=== PATIENT | male | born 1960 | race Caucasian/White ===

== ENCOUNTER 2022-04-01 01:33 | Inpatient (IN) | payer MEDICAID ==
[~2022-04-01] VITALS: Ht 180.3 cm; Wt 99.8 kg
[2022-04-01] MEDS ORDERED: IPRATROPIUM BROMIDE (0.02%) 0.5MG/2.5ML NEB HHN STA (01:38)
[2022-04-01] MEDS ORDERED: ALBUTEROL (0.083%) 2.5MG/3ML NEB HHN STA (01:38)
[2022-04-01 02:15] LABS: BASOPHILS % 0.2 % (0.0-2.0); HEMATOCRIT. 22.2 % (42.0-52.0); HEMOGLOBIN. 7.3 g/dL (14.0-18.0); LYMPHOCYTES % 7.2 % (20.0-50.0); MEAN CORPUSCULAR HEMOGLOBIN 30.1 pg (28.0-32.0); MEAN CORPUSCULAR VOLUME 91.6 fL (80.0-94.0); MEAN PLATELET VOLUME 9.1 fl (7.4-10.4); MONOCYTES % 8.8 % (2.0-8.0); NEUTROPHILS % 83.8 % (40.0-76.0); PLATELET 321 x1000/uL (130-400); RED BLOOD CELL COUNT 2.42 mill/uL (4.7-6.1); RED CELL DISTRIBUTION WIDTH 14.8 % (11.6-14.6)
[2022-04-01 02:22] LABS: CHLORIDE 110 mEq/L (98-107); PARTIAL THROMBOPLASTIN TIME 35.1 sec (23.4-31.0); PROTHROMBIN TIME 10.9 sec (9.6-11.0)
[2022-04-01 02:31] LABS: ETHANOL BLOOD < 10 mg/dL
[2022-04-01] MEDS ORDERED: FUROSEMIDE 100MG/10ML VIAL IV NR (03:22)
[2022-04-01] MEDS ORDERED: SODIUM POLYSTYRENE SULFONATE 15 G/60 ML BOT PO NR ×2 (03:30→13:15)
[2022-04-01] MEDS ORDERED: DEXTROSE 50% WATER 50ML SYRINGE IV NR (03:30)
[2022-04-01] MEDS ORDERED: CALCIUM GLUCONATE 100MG/ML 10ML VIAL IV NR (03:30)
[2022-04-01] MEDS ORDERED: INSULIN REGULAR (HUMULIN R) 300UNITS/3ML VIAL IV NR (03:30)
[2022-04-01 06:17] LABS: CLARITY URINE CLOUDY (CLEAR); COLOR URINE DARK YELLOW (YELLOW); KETONES URINE TRACE (NEGATIVE); LEUKOCYTE ESTERASE URINE NEGATIVE (NEGATIVE); NITRITE URINE NEGATIVE (NEGATIVE); OCCULT BLOOD URINE NEGATIVE (NEGATIVE); PROTEIN URINE 3+ (NEGATIVE); SPECIFIC GRAVITY URINE 1.018 (1.005-1.030); UROBILINOGEN URINE 0.2 E.U./dL (0.2-1.0)
[2022-04-01] MEDS ORDERED: DEXTROSE 50% WATER 50ML SYRINGE IV ONE (06:45)
[2022-04-01 06:47] LABS: *AMPHETAMINES SCREEN URINE NEGATIVE (NEGATIVE); *BARBITURATES SCREEN URINE NEGATIVE (NEGATIVE); *BENZODIAZEPINES SCREEN URINE NEGATIVE (NEGATIVE); *COCAINE SCREEN URINE NEGATIVE (NEGATIVE); CANNABINOID URINE SCREEN NEGATIVE (NEGATIVE); METHADONE URINE SCREEN NEGATIVE (NEGATIVE); OPIATES URINE SCREEN NEGATIVE (NEGATIVE); PHENCYCLIDINE URINE SCREEN NEGATIVE (NEGATIVE)
[2022-04-01 09:36] LABS: BG BASE EXCESS -8.2 mmol/L (-2.0-2.0); BG DEOXYHEMOGLOBIN 7.3 % (0.0-5.0); BG FRACTION INSPIRED OXYGEN 100; BG HCO3 ACT 17.1 mmol/L (22.0-26.0); BG METHEMOGLOBIN 0.3 % (0.0-1.5); BG OXYGEN SATURATION 92.7 % (92.0-98.5); BG OXYHEMOGLOBIN 92.4 % (94.0-97.0); BG PCO2 33.9 mmHg (35.0-45.0); BG PH 7.321 (7.350-7.450); BG PO2 69.6 mmHg (75.0-100.0); BG SAMPLE SITE LEFT RADIAL; BG TOTAL HEMOGLOBIN 7.8 g/dL (12.0-18.0); BG VENT MODE MASK - NRB
[2022-04-01] MEDS ORDERED: HYDROCODONE/ACETAMINOPHEN 5/325MG TABLET PO PRN (12:00)
[2022-04-01] MEDS ORDERED: ACETAMINOPHEN 325MG TABLET PO PRN (12:15)
[2022-04-01] MEDS ORDERED: ONDANSETRON HCL 4MG/2ML INJ IV PRN (12:15)
[2022-04-01] MEDS ORDERED: CEFTRIAXONE 1 G PREMIX 50 ML IV SCH (12:30)
[2022-04-01] MEDS ORDERED: DEXAMETHASONE 4MG/ML 1ML VIAL IV SCH (12:30)
[2022-04-01] MEDS ORDERED: NALOXONE HCL 0.4MG/ML VIAL IV PRN (12:45)
[2022-04-01] MEDS: DEXAMETHASONE 10 MG/ML VIAL IV SCH (12:54)
[2022-04-01] MEDS ORDERED: VANCOMYCIN 1500MG in DEXTROSE 5% WATER 250ML IV NR (13:00)
[2022-04-01] MEDS ORDERED: SODIUM BICARBONATE 8.4% 1 MEQ/ML 50ML SYR IV NR (13:15)
[2022-04-01] MEDS ORDERED: ALBUTEROL 6.7GM HFA INHALER ORI NR (19:30)
[2022-04-01] MEDS ORDERED: FUROSEMIDE 100MG/10ML VIAL IVP SCH (21:00)
[2022-04-01] MEDS ORDERED: EPOETIN ALFA-EPBX 4,000 UNIT/ML VIAL SUBCUT NR (21:00)
[2022-04-01 23:23] VITALS: BP 149/76
[2022-04-02 04:00] VITALS: BP 133/66
[2022-04-02] MEDS ORDERED: LOSA25TA26 PO (06:38)
[2022-04-02] MEDS ORDERED: LISI20TA31 PO (06:38)
[2022-04-02] MEDS ORDERED: GABA-532 PO (06:38)
[2022-04-02] MEDS ORDERED: CARV25TA47 PO (06:38)
[2022-04-02] MEDS ORDERED: FURO40TA5 PO (06:38)
[2022-04-02] MEDS ORDERED: GLIP5TAB12 PO (06:39)
[2022-04-02] MEDS ORDERED: DEXTROSE 50% WATER 50ML SYRINGE IV PRN (06:45)
[2022-04-02 06:57] LABS: BASOPHILS % 0.1 % (0.0-2.0); LYMPHOCYTES % 8.9 % (20.0-50.0); MEAN CORPUSCULAR HEMOGLOBIN 29.9 pg (28.0-32.0); MEAN CORPUSCULAR VOLUME 91.5 fL (80.0-94.0); MONOCYTES % 8.3 % (2.0-8.0); NEUTROPHILS % 82.7 % (40.0-76.0); PLATELET 391 x1000/uL (130-400); RED BLOOD CELL COUNT 2.99 mill/uL (4.7-6.1); RED CELL DISTRIBUTION WIDTH 14.8 % (11.6-14.6)
[2022-04-02 07:18] LABS: HEMATOCRIT. 27.4 % (42.0-52.0); HEMOGLOBIN. 8.9 g/dL (14.0-18.0)
[2022-04-02] MEDS: INSULIN LISPRO 100 UNITS/ML SUBCUT SCH ×4 (07:32→22:34)
[2022-04-02 07:51] LABS: CHLORIDE 107 mEq/L (98-107)
[2022-04-02 07:52] LABS: BG BASE EXCESS -9.7 mmol/L (-2.0-2.0); BG CARBOXYHEMOGLOBIN 0.3 % (0.5-1.5); BG DEOXYHEMOGLOBIN 9.2 % (0.0-5.0); BG HCO3 ACT 15.7 mmol/L (22.0-26.0); BG METHEMOGLOBIN 0.3 % (0.0-1.5); BG OXYGEN SATURATION 90.7 % (92.0-98.5); BG OXYHEMOGLOBIN 90.2 % (94.0-97.0); BG PCO2 32.4 mmHg (35.0-45.0); BG PH 7.303 (7.350-7.450); BG PO2 66.1 mmHg (75.0-100.0); BG SAMPLE SITE RIGHT BRACHIAL; BG TOTAL HEMOGLOBIN 8.6 g/dL (12.0-18.0); BG VENT MODE NASAL CANNULA
[2022-04-02 08:00] VITALS: BP 151/76
[2022-04-02 08:09] LABS: CREATINE KINASE 1299 IU/L (39-308); PHOSPHORUS 7.5 mg/dL (2.5-4.9)
[2022-04-02] MEDS: GABAPENTIN 300MG CAPSULE PO SCH (08:30)
[2022-04-02] MEDS: CEFTRIAXONE 1,000 MG in DEXTROSE 5% WATER 50 ML IV SCH (08:31)
[2022-04-02] MEDS: DEXAMETHASONE 10 MG/ML VIAL IV SCH (08:31)
[2022-04-02] MEDS: CARVEDILOL 12.5MG TABLET PO SCH ×2 (08:31→23:16)
[2022-04-02] MEDS ORDERED: FUROSEMIDE 40MG/4ML VIAL IVP SCH (09:00)
[2022-04-02] MEDS ORDERED: SODIUM POLYSTYRENE SULFONATE 15 G/60 ML BOT PO NR ×2 (09:00→16:00)
[2022-04-02] MEDS ORDERED: LOSARTAN POTASSIUM 25 MG TABLET PO SCH (09:00)
[2022-04-02] MEDS ORDERED: LISINOPRIL 20MG TABLET PO SCH (09:00)
[2022-04-02] MEDS ORDERED: FUROSEMIDE 40MG/4ML VIAL IVP NR (09:00)
[2022-04-02] MEDS: CITRIC ACID/SODIUM CITRATE SOLN 30ML UDC PO SCH ×3 (09:22→17:09)
[2022-04-02] MEDS ORDERED: INSULIN GLARGINE 100 UNITS/ML SUBCUT NR (10:30)
[2022-04-02] MEDS: BLOOD SUGAR DIAGNOSTIC STRIP TEST SCH ×3 (11:36→20:54)
[2022-04-02 12:00] VITALS: BP 140/67
[2022-04-02] MEDS ORDERED: VANCOMYCIN 500MG PREMIX 100 ML IV NR (15:00)
[2022-04-02 16:00] VITALS: BP 116/74
[2022-04-02 20:00] VITALS: BP 125/81
[2022-04-02] MEDS: INSULIN GLARGINE 100 UNITS/ML SUBCUT SCH (22:33)
[2022-04-02] MEDS: FUROSEMIDE 100MG/10ML VIAL IVP SCH (22:34)
[2022-04-03] VITALS: BP 144/78
[2022-04-03 04:00] VITALS: BP 137/74
[2022-04-03] MEDS: INSULIN LISPRO 100 UNITS/ML SUBCUT SCH ×4 (06:29→21:27)
[2022-04-03] MEDS: BLOOD SUGAR DIAGNOSTIC STRIP TEST SCH ×4 (06:29→21:02)
[2022-04-03 08:00] VITALS: BP 129/63
[2022-04-03] MEDS: CITRIC ACID/SODIUM CITRATE SOLN 30ML UDC PO SCH ×3 (09:34→17:36)
[2022-04-03] MEDS: CARVEDILOL 12.5MG TABLET PO SCH ×2 (09:35→21:27)
[2022-04-03] MEDS: DEXAMETHASONE 10 MG/ML VIAL IV SCH (09:35)
[2022-04-03] MEDS: FUROSEMIDE 100MG/10ML VIAL IVP SCH ×2 (09:35→21:26)
[2022-04-03] MEDS: CEFTRIAXONE 1,000 MG in DEXTROSE 5% WATER 50 ML IV SCH (09:35)
[2022-04-03] MEDS: GABAPENTIN 300MG CAPSULE PO SCH (09:35)
[2022-04-03] MEDS: INSULIN GLARGINE 100 UNITS/ML SUBCUT SCH ×2 (09:54→21:28)
[2022-04-03 12:00] VITALS: BP 136/67
[2022-04-03 14:09] LABS: HEMATOCRIT. 26.3 % (42.0-52.0); HEMOGLOBIN. 8.8 g/dL (14.0-18.0); MEAN CORPUSCULAR HEMOGLOBIN 29.3 pg (28.0-32.0); MEAN CORPUSCULAR VOLUME 87.9 fL (80.0-94.0); MEAN PLATELET VOLUME 8.2 fl (7.4-10.4); PLATELET 445 x1000/uL (130-400); RED CELL DISTRIBUTION WIDTH 14.3 % (11.6-14.6)
[2022-04-03 14:47] LABS: PLATELET ESTIMATE INCREASED
[2022-04-03 14:53] LABS: CHLORIDE 107 mEq/L (98-107)
[2022-04-03 16:00] VITALS: BP 130/67
[2022-04-03] MEDS ORDERED: ALBUTEROL 6.7GM HFA INHALER ORI PRN (17:00)
[2022-04-03] MEDS ORDERED: VANCOMYCIN 750MG PREMIX 150 ML IV NR (17:30)
[2022-04-03 18:25] LABS: BG BASE EXCESS -0.9 mmol/L (-2.0-2.0); BG CARBOXYHEMOGLOBIN 0.1 % (0.5-1.5); BG DEOXYHEMOGLOBIN 16.1 % (0.0-5.0); BG FRACTION INSPIRED OXYGEN 21; BG HCO3 ACT 23.2 mmol/L (22.0-26.0); BG METHEMOGLOBIN 0.3 % (0.0-1.5); BG OXYGEN SATURATION 83.8 % (92.0-98.5); BG OXYHEMOGLOBIN 83.5 % (94.0-97.0); BG PCO2 36.3 mmHg (35.0-45.0); BG PH 7.424 (7.350-7.450); BG PO2 49.1 mmHg (75.0-100.0); BG SAMPLE SITE RIGHT BRACHIAL; BG TOTAL HEMOGLOBIN 9.7 g/dL (12.0-18.0); BG VENT MODE ROOM AIR
[2022-04-03 20:00] VITALS: BP 144/71
[2022-04-04] VITALS: BP 141/65
[2022-04-04 04:00] VITALS: BP 141/65
[2022-04-04] MEDS: INSULIN LISPRO 100 UNITS/ML SUBCUT SCH ×4 (07:10→21:24)
[2022-04-04] MEDS: BLOOD SUGAR DIAGNOSTIC STRIP TEST SCH ×4 (07:39→21:24)
[2022-04-04 08:00] VITALS: BP 150/70
[2022-04-04] MEDS: CEFTRIAXONE 1,000 MG in DEXTROSE 5% WATER 50 ML IV SCH (09:12)
[2022-04-04] MEDS: CARVEDILOL 12.5MG TABLET PO SCH ×2 (09:13→21:21)
[2022-04-04] MEDS: DEXAMETHASONE 10 MG/ML VIAL IV SCH (09:14)
[2022-04-04] MEDS: GABAPENTIN 300MG CAPSULE PO SCH (09:14)
[2022-04-04] MEDS: FUROSEMIDE 100MG/10ML VIAL IVP SCH ×2 (09:15→21:20)
[2022-04-04] MEDS: CITRIC ACID/SODIUM CITRATE SOLN 30ML UDC PO SCH ×3 (09:15→17:25)
[2022-04-04 09:26] LABS: HEMATOCRIT. 26.8 % (42.0-52.0); MEAN CORPUSCULAR HEMOGLOBIN 29.8 pg (28.0-32.0); MEAN CORPUSCULAR VOLUME 88.6 fL (80.0-94.0); MEAN PLATELET VOLUME 8.6 fl (7.4-10.4); PLATELET 427 x1000/uL (130-400); RED BLOOD CELL COUNT 3.03 mill/uL (4.7-6.1); RED CELL DISTRIBUTION WIDTH 14.3 % (11.6-14.6)
[2022-04-04 09:33] LABS: PHOSPHORUS 5.5 mg/dL (2.5-4.9)
[2022-04-04] MEDS: INSULIN GLARGINE 100 UNITS/ML SUBCUT SCH ×2 (09:49→21:23)
[2022-04-04 12:00] VITALS: BP 155/72
[2022-04-04] MEDS ORDERED: VANCOMYCIN 1G PREMIX 200 ML IV NR (12:00)
[2022-04-04 13:54] LABS: PLATELET ESTIMATE INCREASED
[2022-04-04 16:00] VITALS: BP_SYST 157; BP_SYST 97; BP_DIAS 58; BP_DIAS 74
[2022-04-04 20:00] VITALS: BP 156/71
[2022-04-05] VITALS: BP 149/96
[2022-04-05 04:00] VITALS: BP 167/83
[2022-04-05 05:27] VITALS: BP 155/74
[2022-04-05] MEDS: BLOOD SUGAR DIAGNOSTIC STRIP TEST SCH ×4 (06:05→21:13)
[2022-04-05] MEDS: INSULIN LISPRO 100 UNITS/ML SUBCUT SCH ×4 (06:05→21:15)
[2022-04-05 08:00] LABS: BG BASE EXCESS 0.3 mmol/L (-2.0-2.0); BG CARBOXYHEMOGLOBIN 0.3 % (0.5-1.5); BG DEOXYHEMOGLOBIN 5.6 % (0.0-5.0); BG HCO3 ACT 24.2 mmol/L (22.0-26.0); BG OXYGEN SATURATION 94.4 % (92.0-98.5); BG OXYHEMOGLOBIN 94.1 % (94.0-97.0); BG PCO2 36.1 mmHg (35.0-45.0); BG PH 7.445 (7.350-7.450); BG PO2 74.6 mmHg (75.0-100.0); BG SAMPLE SITE RIGHT RADIAL; BG TOTAL HEMOGLOBIN 9.4 g/dL (12.0-18.0); BG VENT MODE MASK - SIMPLE
[2022-04-05] MEDS: CITRIC ACID/SODIUM CITRATE SOLN 30ML UDC PO SCH ×3 (09:50→17:47)
[2022-04-05] MEDS: FUROSEMIDE 100MG/10ML VIAL IVP SCH (09:50)
[2022-04-05] MEDS: DEXAMETHASONE 10 MG/ML VIAL IV SCH (09:51)
[2022-04-05] MEDS: CARVEDILOL 12.5MG TABLET PO SCH ×2 (09:51→21:14)
[2022-04-05] MEDS: GABAPENTIN 300MG CAPSULE PO SCH (09:51)
[2022-04-05] MEDS: CEFTRIAXONE 1,000 MG in DEXTROSE 5% WATER 50 ML IV SCH (10:00)
[2022-04-05] MEDS: INSULIN GLARGINE 100 UNITS/ML SUBCUT SCH ×2 (10:07→21:17)
[2022-04-05] MEDS: AMLODIPINE 10MG TABLET PO SCH (10:34)
[2022-04-05 11:45] LABS: HEMATOCRIT. 28.7 % (42.0-52.0); HEMOGLOBIN. 9.4 g/dL (14.0-18.0); MEAN CORPUSCULAR HEMOGLOBIN 28.9 pg (28.0-32.0); MEAN CORPUSCULAR VOLUME 87.8 fL (80.0-94.0); MEAN PLATELET VOLUME 8.2 fl (7.4-10.4); PLATELET 460 x1000/uL (130-400); RED BLOOD CELL COUNT 3.27 mill/uL (4.7-6.1); RED CELL DISTRIBUTION WIDTH 14.6 % (11.6-14.6)
[2022-04-05 12:00] VITALS: BP 146/73
[2022-04-05 12:14] LABS: PHOSPHORUS 4.2 mg/dL (2.5-4.9)
[2022-04-05 13:05] LABS: PLATELET ESTIMATE SLIGHTLY INCREASED
[2022-04-05 16:00] VITALS: BP 122/55
[2022-04-05 20:00] VITALS: BP 137/69
[2022-04-06] VITALS: BP 122/52
[2022-04-06 04:00] VITALS: BP 141/69
[2022-04-06] MEDS: BLOOD SUGAR DIAGNOSTIC STRIP TEST SCH ×4 (06:07→20:52)
[2022-04-06] MEDS: INSULIN LISPRO 100 UNITS/ML SUBCUT SCH ×4 (06:14→21:27)
[2022-04-06 06:51] LABS: HEMATOCRIT. 26.9 % (42.0-52.0); HEMOGLOBIN. 8.8 g/dL (14.0-18.0); MEAN CORPUSCULAR HEMOGLOBIN 28.7 pg (28.0-32.0); MEAN CORPUSCULAR VOLUME 87.5 fL (80.0-94.0); MEAN PLATELET VOLUME 8.3 fl (7.4-10.4); PLATELET 448 x1000/uL (130-400); RED BLOOD CELL COUNT 3.08 mill/uL (4.7-6.1); RED CELL DISTRIBUTION WIDTH 14.6 % (11.6-14.6)
[2022-04-06 07:08] LABS: PHOSPHORUS 4.7 mg/dL (2.5-4.9)
[2022-04-06] MEDS: AMLODIPINE 10MG TABLET PO SCH (10:11)
[2022-04-06] MEDS: CEFTRIAXONE 1,000 MG in DEXTROSE 5% WATER 50 ML IV SCH (10:11)
[2022-04-06] MEDS: GABAPENTIN 300MG CAPSULE PO SCH (10:12)
[2022-04-06] MEDS: FUROSEMIDE 100MG/10ML VIAL IVP SCH (10:12)
[2022-04-06] MEDS: CITRIC ACID/SODIUM CITRATE SOLN 30ML UDC PO SCH ×3 (10:12→17:31)
[2022-04-06] MEDS: DEXAMETHASONE 10 MG/ML VIAL IV SCH (10:12)
[2022-04-06] MEDS: CARVEDILOL 12.5MG TABLET PO SCH ×2 (10:15→21:25)
[2022-04-06] MEDS: INSULIN GLARGINE 100 UNITS/ML SUBCUT SCH ×2 (10:29→21:26)
[2022-04-06] MEDS ORDERED: GUAIFENESIN/CODEINE 100-10MG/5ML UDC PO PRN (14:45)
[2022-04-06] MEDS ORDERED: GUAIFENESIN/CODEINE 200-20MG/10ML UDC PO PRN (14:59)
[2022-04-06 16:13] VITALS: BP 139/67
[2022-04-06 17:54] LABS: PLATELET ESTIMATE INCREASED
[2022-04-06] MEDS: ALBUTEROL 6.7GM HFA INHALER ORI SCH (18:34)
[2022-04-06 20:00] VITALS: BP 140/65
[2022-04-06] MEDS: TRAZODONE HCL 50MG TABLET PO PRN (21:24)
[2022-04-07] VITALS: BP 155/59
[2022-04-07] MEDS: ALBUTEROL 6.7GM HFA INHALER ORI SCH ×4 (00:18→17:23)
[2022-04-07 03:35] LABS: BG CARBOXYHEMOGLOBIN 0.3 % (0.5-1.5); BG DEOXYHEMOGLOBIN 7.7 % (0.0-5.0); BG FRACTION INSPIRED OXYGEN 100; BG HCO3 ACT 28.5 mmol/L (22.0-26.0); BG METHEMOGLOBIN 0.1 % (0.0-1.5); BG OXYGEN SATURATION 92.3 % (92.0-98.5); BG OXYHEMOGLOBIN 91.9 % (94.0-97.0); BG PCO2 42.6 mmHg (35.0-45.0); BG PH 7.443 (7.350-7.450); BG PO2 67.5 mmHg (75.0-100.0); BG SAMPLE SITE RIGHT BRACHIAL; BG TOTAL HEMOGLOBIN 9.9 g/dL (12.0-18.0); BG VENT MODE MASK - NRB
[2022-04-07 04:00] VITALS: BP_SYST 121; BP_SYST 144; BP_DIAS 68; BP_DIAS 79
[2022-04-07] MEDS: BLOOD SUGAR DIAGNOSTIC STRIP TEST SCH ×4 (06:15→21:44)
[2022-04-07] MEDS: INSULIN LISPRO 100 UNITS/ML SUBCUT SCH ×4 (06:27→21:47)
[2022-04-07 07:20] LABS: HEMATOCRIT. 25.2 % (42.0-52.0); HEMOGLOBIN. 8.5 g/dL (14.0-18.0); MEAN CORPUSCULAR HEMOGLOBIN 29.4 pg (28.0-32.0); MEAN CORPUSCULAR VOLUME 87.1 fL (80.0-94.0); MEAN PLATELET VOLUME 7.8 fl (7.4-10.4); PLATELET 430 x1000/uL (130-400); RED BLOOD CELL COUNT 2.89 mill/uL (4.7-6.1); RED CELL DISTRIBUTION WIDTH 14.6 % (11.6-14.6)
[2022-04-07 07:42] LABS: CHLORIDE 104 mEq/L (98-107); PHOSPHORUS 4.5 mg/dL (2.5-4.9)
[2022-04-07 08:00] VITALS: BP 138/70
[2022-04-07] MEDS: CARVEDILOL 12.5MG TABLET PO SCH ×2 (08:56→21:44)
[2022-04-07] MEDS: FUROSEMIDE 100MG/10ML VIAL IVP SCH (08:56)
[2022-04-07] MEDS: GABAPENTIN 300MG CAPSULE PO SCH (08:56)
[2022-04-07] MEDS: CITRIC ACID/SODIUM CITRATE SOLN 30ML UDC PO SCH ×2 (08:56→12:37)
[2022-04-07] MEDS: AMLODIPINE 10MG TABLET PO SCH (08:56)
[2022-04-07] MEDS: DEXAMETHASONE 10 MG/ML VIAL IV SCH (08:56)
[2022-04-07] MEDS: INSULIN GLARGINE 100 UNITS/ML SUBCUT SCH ×2 (10:27→21:46)
[2022-04-07 10:31] LABS: BG BASE EXCESS 3.7 mmol/L (-2.0-2.0); BG CARBOXYHEMOGLOBIN 0.3 % (0.5-1.5); BG FRACTION INSPIRED OXYGEN 100; BG HCO3 ACT 28.2 mmol/L (22.0-26.0); BG METHEMOGLOBIN 0.4 % (0.0-1.5); BG OXYGEN SATURATION 90.9 % (92.0-98.5); BG OXYHEMOGLOBIN 90.3 % (94.0-97.0); BG PCO2 42.6 mmHg (35.0-45.0); BG PH 7.439 (7.350-7.450); BG PO2 62.7 mmHg (75.0-100.0); BG SAMPLE SITE RIGHT RADIAL; BG TOTAL HEMOGLOBIN 9.7 g/dL (12.0-18.0); BG VENT MODE MASK - NRB
[2022-04-07 12:00] VITALS: BP 140/68
[2022-04-07 16:00] VITALS: BP 132/74
[2022-04-07] MEDS: VANCOMYCIN 1G PREMIX 200 ML IV SCH (18:10)
[2022-04-07 18:34] LABS: CREATINE KINASE 191 IU/L (39-308)
[2022-04-07 19:15] LABS: PLATELET ESTIMATE INCREASED
[2022-04-07 20:00] VITALS: BP 140/67
[2022-04-07] MEDS: METHYLPREDNISOLONE SOD SUCC 125 MG/2 ML VIAL IV SCH (21:44)
[2022-04-08] VITALS: BP 140/69
[2022-04-08 04:00] VITALS: BP 145/69
[2022-04-08] MEDS: BLOOD SUGAR DIAGNOSTIC STRIP TEST SCH ×4 (06:08→21:20)
[2022-04-08] MEDS: METHYLPREDNISOLONE SOD SUCC 125 MG/2 ML VIAL IV SCH ×3 (06:27→17:47)
[2022-04-08] MEDS: INSULIN LISPRO 100 UNITS/ML SUBCUT SCH ×4 (06:29→21:22)
[2022-04-08 07:24] LABS: HEMATOCRIT. 29.6 % (42.0-52.0); HEMOGLOBIN. 9.8 g/dL (14.0-18.0); MEAN CORPUSCULAR HEMOGLOBIN 29.2 pg (28.0-32.0); MEAN CORPUSCULAR VOLUME 88.1 fL (80.0-94.0); MEAN PLATELET VOLUME 8.1 fl (7.4-10.4); PLATELET 483 x1000/uL (130-400); RED BLOOD CELL COUNT 3.36 mill/uL (4.7-6.1); RED CELL DISTRIBUTION WIDTH 14.5 % (11.6-14.6)
[2022-04-08 08:00] VITALS: BP 143/71
[2022-04-08 08:20] LABS: CHLORIDE 103 mEq/L (98-107)
[2022-04-08 08:46] LABS: PHOSPHORUS 4.9 mg/dL (2.5-4.9)
[2022-04-08] MEDS: CARVEDILOL 12.5MG TABLET PO SCH ×2 (09:47→21:21)
[2022-04-08] MEDS: FUROSEMIDE 100MG/10ML VIAL IVP SCH (09:47)
[2022-04-08] MEDS: GABAPENTIN 300MG CAPSULE PO SCH (09:47)
[2022-04-08] MEDS: AMLODIPINE 10MG TABLET PO SCH (09:48)
[2022-04-08] MEDS: INSULIN GLARGINE 100 UNITS/ML SUBCUT SCH ×2 (09:48→21:21)
[2022-04-08 12:00] VITALS: BP 144/72
[2022-04-08 16:00] VITALS: BP 135/63
[2022-04-08 20:00] VITALS: BP 139/66
[2022-04-08] MEDS: TRAZODONE HCL 50MG TABLET PO PRN (21:30)
[2022-04-08 22:14] LABS: PLATELET ESTIMATE INCREASED
[2022-04-09] VITALS: BP 134/63
[2022-04-09] MEDS: METHYLPREDNISOLONE SOD SUCC 125 MG/2 ML VIAL IV SCH ×4 (00:37→18:42)
[2022-04-09 04:00] VITALS: BP 133/62
[2022-04-09] MEDS: VANCOMYCIN 1G PREMIX 200 ML IV SCH (04:23)
[2022-04-09] MEDS: INSULIN LISPRO 100 UNITS/ML SUBCUT SCH ×5 (05:50→21:48)
[2022-04-09] MEDS: ALBUTEROL 6.7GM HFA INHALER ORI SCH ×2 (05:50→12:43)
[2022-04-09] MEDS: BLOOD SUGAR DIAGNOSTIC STRIP TEST SCH ×4 (05:51→21:21)
[2022-04-09 07:37] LABS: HEMATOCRIT. 26.9 % (42.0-52.0); HEMOGLOBIN. 8.8 g/dL (14.0-18.0); MEAN CORPUSCULAR HEMOGLOBIN 28.6 pg (28.0-32.0); MEAN CORPUSCULAR VOLUME 87.2 fL (80.0-94.0); MEAN PLATELET VOLUME 7.7 fl (7.4-10.4); PLATELET 452 x1000/uL (130-400); RED BLOOD CELL COUNT 3.08 mill/uL (4.7-6.1); RED CELL DISTRIBUTION WIDTH 14.9 % (11.6-14.6)
[2022-04-09 08:00] VITALS: BP 127/64
[2022-04-09] MEDS: GABAPENTIN 300MG CAPSULE PO SCH (08:40)
[2022-04-09] MEDS: AMLODIPINE 10MG TABLET PO SCH (08:41)
[2022-04-09] MEDS: CARVEDILOL 12.5MG TABLET PO SCH ×2 (08:41→20:46)
[2022-04-09] MEDS: FUROSEMIDE 40MG TABLET PO SCH (08:41)
[2022-04-09 08:43] LABS: PHOSPHORUS 4.7 mg/dL (2.5-4.9)
[2022-04-09] MEDS: INSULIN GLARGINE 100 UNITS/ML SUBCUT SCH ×3 (09:26→21:48)
[2022-04-09 11:08] LABS: PLATELET ESTIMATE INCREASED
[2022-04-09 12:00] VITALS: BP 137/67
[2022-04-09 16:00] VITALS: BP 126/59
[2022-04-09 20:00] VITALS: BP 138/66
[2022-04-09] MEDS: IPRATROPIUM/ALBUTEROL 0.5-3(2.5)MG/3ML NEB HHN SCH (21:55)
[2022-04-09] MEDS: ZOLPIDEM TARTRATE 5MG TABLET PO PRN (22:06)
[2022-04-10] VITALS: BP 129/67
[2022-04-10] MEDS: METHYLPREDNISOLONE SOD SUCC 125 MG/2 ML VIAL IV SCH ×4 (00:07→19:03)
[2022-04-10] MEDS: IPRATROPIUM/ALBUTEROL 0.5-3(2.5)MG/3ML NEB HHN SCH ×7 (02:54→23:23)
[2022-04-10 04:00] VITALS: BP_SYST 115; BP_SYST 142; BP_DIAS 56; BP_DIAS 69
[2022-04-10] MEDS: BLOOD SUGAR DIAGNOSTIC STRIP TEST SCH ×3 (06:10→21:00)
[2022-04-10] MEDS: INSULIN LISPRO 100 UNITS/ML SUBCUT SCH ×4 (06:32→22:17)
[2022-04-10 08:00] VITALS: BP 132/63
[2022-04-10 08:02] LABS: HEMATOCRIT. 27.3 % (42.0-52.0); HEMOGLOBIN. 8.9 g/dL (14.0-18.0); MEAN CORPUSCULAR HEMOGLOBIN 28.7 pg (28.0-32.0); MEAN CORPUSCULAR VOLUME 88.6 fL (80.0-94.0); PLATELET 420 x1000/uL (130-400); RED BLOOD CELL COUNT 3.08 mill/uL (4.7-6.1)
[2022-04-10 08:07] LABS: CHLORIDE 105 mEq/L (98-107)
[2022-04-10] MEDS: GABAPENTIN 300MG CAPSULE PO SCH (08:45)
[2022-04-10] MEDS: FUROSEMIDE 40MG TABLET PO SCH (08:45)
[2022-04-10] MEDS: CARVEDILOL 12.5MG TABLET PO SCH ×2 (08:46→21:00)
[2022-04-10] MEDS: AMLODIPINE 10MG TABLET PO SCH (08:46)
[2022-04-10] MEDS: INSULIN GLARGINE 100 UNITS/ML SUBCUT SCH ×2 (09:26→22:16)
[2022-04-10 12:00] VITALS: BP 136/68
[2022-04-10 12:11] LABS: PLATELET ESTIMATE INCREASED
[2022-04-10 16:00] VITALS: BP 133/65
[2022-04-10 20:00] VITALS: BP 103/61
[2022-04-11] VITALS: BP 138/66
[2022-04-11] MEDS: METHYLPREDNISOLONE SOD SUCC 125 MG/2 ML VIAL IV SCH ×4 (00:11→17:52)
[2022-04-11] MEDS: ZOLPIDEM TARTRATE 5MG TABLET PO PRN (00:22)
[2022-04-11] MEDS: IPRATROPIUM/ALBUTEROL 0.5-3(2.5)MG/3ML NEB HHN SCH ×5 (03:12→21:50)
[2022-04-11 04:00] VITALS: BP_SYST 117; BP_SYST 137; BP_DIAS 58; BP_DIAS 72
[2022-04-11] MEDS: BLOOD SUGAR DIAGNOSTIC STRIP TEST SCH ×4 (05:58→21:11)
[2022-04-11] MEDS: INSULIN LISPRO 100 UNITS/ML SUBCUT SCH ×4 (06:18→21:14)
[2022-04-11 08:00] VITALS: BP 134/63
[2022-04-11 08:40] LABS: HEMATOCRIT. 26.8 % (42.0-52.0); HEMOGLOBIN. 8.9 g/dL (14.0-18.0); MEAN CORPUSCULAR HEMOGLOBIN 28.8 pg (28.0-32.0); MEAN CORPUSCULAR VOLUME 87.2 fL (80.0-94.0); MEAN PLATELET VOLUME 8.1 fl (7.4-10.4); PLATELET 413 x1000/uL (130-400); RED BLOOD CELL COUNT 3.08 mill/uL (4.7-6.1); RED CELL DISTRIBUTION WIDTH 14.8 % (11.6-14.6)
[2022-04-11] MEDS: CARVEDILOL 12.5MG TABLET PO SCH ×2 (08:51→21:12)
[2022-04-11] MEDS: AMLODIPINE 10MG TABLET PO SCH (08:51)
[2022-04-11] MEDS: GABAPENTIN 300MG CAPSULE PO SCH (08:51)
[2022-04-11] MEDS: VANCOMYCIN 1.25GM PMX (XELLIA) 250 ML IV SCH (08:51)
[2022-04-11] MEDS: FUROSEMIDE 40MG TABLET PO SCH (08:51)
[2022-04-11 09:15] LABS: PHOSPHORUS 4.6 mg/dL (2.5-4.9)
[2022-04-11] MEDS: INSULIN GLARGINE 100 UNITS/ML SUBCUT SCH ×2 (09:40→21:14)
[2022-04-11 12:00] VITALS: BP 136/60
[2022-04-11 14:14] LABS: PLATELET ESTIMATE NORMAL
[2022-04-11 16:00] VITALS: BP 137/58
[2022-04-11 20:00] VITALS: BP 126/57
[2022-04-12] VITALS: BP 132/58
[2022-04-12] MEDS: METHYLPREDNISOLONE SOD SUCC 125 MG/2 ML VIAL IV SCH ×5 (00:10→23:15)
[2022-04-12] MEDS: IPRATROPIUM/ALBUTEROL 0.5-3(2.5)MG/3ML NEB HHN SCH ×6 (00:45→21:18)
[2022-04-12 04:00] VITALS: BP_SYST 125; BP_SYST 136; BP_DIAS 58; BP_DIAS 60
[2022-04-12] MEDS: BLOOD SUGAR DIAGNOSTIC STRIP TEST SCH ×4 (05:45→20:46)
[2022-04-12] MEDS: INSULIN LISPRO 100 UNITS/ML SUBCUT SCH ×4 (05:45→21:21)
[2022-04-12 07:54] LABS: HEMATOCRIT. 26.5 % (42.0-52.0); HEMOGLOBIN. 8.7 g/dL (14.0-18.0); MEAN CORPUSCULAR HEMOGLOBIN 28.6 pg (28.0-32.0); MEAN CORPUSCULAR VOLUME 87.3 fL (80.0-94.0); MEAN PLATELET VOLUME 8.7 fl (7.4-10.4); PLATELET 329 x1000/uL (130-400); RED BLOOD CELL COUNT 3.03 mill/uL (4.7-6.1); RED CELL DISTRIBUTION WIDTH 14.6 % (11.6-14.6)
[2022-04-12 07:57] LABS: PHOSPHORUS 4.2 mg/dL (2.5-4.9)
[2022-04-12 08:08] VITALS: BP 137/65
[2022-04-12] MEDS: FUROSEMIDE 40MG TABLET PO SCH (09:20)
[2022-04-12] MEDS: CARVEDILOL 12.5MG TABLET PO SCH ×2 (09:20→21:24)
[2022-04-12] MEDS: AMLODIPINE 10MG TABLET PO SCH (09:20)
[2022-04-12] MEDS: GABAPENTIN 300MG CAPSULE PO SCH (09:20)
[2022-04-12] MEDS: INSULIN GLARGINE 100 UNITS/ML SUBCUT SCH ×2 (09:23→21:23)
[2022-04-12 12:00] VITALS: BP 129/64
[2022-04-12 12:05] LABS: NUCLEATED RED BLOOD CELLS 1 /100 WBC; PLATELET ESTIMATE NORMAL
[2022-04-12 16:00] VITALS: BP 125/60
[2022-04-12 20:12] VITALS: BP 122/59
[2022-04-13 00:25] VITALS: BP 120/66
[2022-04-13] MEDS: IPRATROPIUM/ALBUTEROL 0.5-3(2.5)MG/3ML NEB HHN SCH ×6 (01:03→21:24)
[2022-04-13 04:09] VITALS: BP 121/79
[2022-04-13] MEDS: METHYLPREDNISOLONE SOD SUCC 125 MG/2 ML VIAL IV SCH ×3 (05:40→17:19)
[2022-04-13] MEDS: BLOOD SUGAR DIAGNOSTIC STRIP TEST SCH ×4 (05:48→21:34)
[2022-04-13] MEDS: INSULIN LISPRO 100 UNITS/ML SUBCUT SCH ×4 (06:12→21:34)
[2022-04-13 07:35] LABS: HEMATOCRIT. 26.9 % (42.0-52.0); HEMOGLOBIN. 8.7 g/dL (14.0-18.0); MEAN CORPUSCULAR HEMOGLOBIN 28.4 pg (28.0-32.0); MEAN CORPUSCULAR VOLUME 87.3 fL (80.0-94.0); MEAN PLATELET VOLUME 9.3 fl (7.4-10.4); PLATELET 282 x1000/uL (130-400); RED BLOOD CELL COUNT 3.08 mill/uL (4.7-6.1); RED CELL DISTRIBUTION WIDTH 14.9 % (11.6-14.6)
[2022-04-13 08:00] VITALS: BP 141/68
[2022-04-13 08:13] LABS: PHOSPHORUS 4.1 mg/dL (2.5-4.9)
[2022-04-13] MEDS ORDERED: FUROSEMIDE 40MG TABLET PO SCH (09:00)
[2022-04-13] MEDS: VANCOMYCIN 1.25GM PMX (XELLIA) 250 ML IV SCH (09:30)
[2022-04-13] MEDS: AMLODIPINE 10MG TABLET PO SCH (09:30)
[2022-04-13] MEDS: CARVEDILOL 12.5MG TABLET PO SCH ×2 (09:30→21:29)
[2022-04-13] MEDS: GABAPENTIN 300MG CAPSULE PO SCH (09:30)
[2022-04-13] MEDS: INSULIN GLARGINE 100 UNITS/ML SUBCUT SCH ×2 (09:32→21:32)
[2022-04-13 10:52] LABS: PLATELET ESTIMATE NORMAL
[2022-04-13 12:00] VITALS: BP 118/60
[2022-04-13] MEDS ORDERED: TRAMADOL 50MG TABLET PO PRN (14:00)
[2022-04-13] MEDS ORDERED: NALOXONE HCL 0.4MG/ML VIAL IV PRN (14:15)
[2022-04-13 16:00] VITALS: BP 129/60
[2022-04-13 20:00] VITALS: BP 132/62
[2022-04-13] MEDS: CEFEPIME 2,000 MG in DEXT 5% WATER 100 ML IV SCH (20:38)
[2022-04-14] VITALS: BP 145/65
[2022-04-14] MEDS: METHYLPREDNISOLONE SOD SUCC 125 MG/2 ML VIAL IV SCH ×4 (00:18→17:51)
[2022-04-14] MEDS: IPRATROPIUM/ALBUTEROL 0.5-3(2.5)MG/3ML NEB HHN SCH ×6 (00:52→23:50)
[2022-04-14 04:00] VITALS: BP 142/69
[2022-04-14] MEDS: INSULIN LISPRO 100 UNITS/ML SUBCUT SCH ×4 (06:35→20:41)
[2022-04-14] MEDS: BLOOD SUGAR DIAGNOSTIC STRIP TEST SCH ×4 (06:35→20:41)
[2022-04-14] MEDS: CEFEPIME 2,000 MG in DEXT 5% WATER 100 ML IV SCH ×2 (06:36→19:36)
[2022-04-14 07:07] LABS: HEMATOCRIT. 26.4 % (42.0-52.0); HEMOGLOBIN. 8.5 g/dL (14.0-18.0); MEAN CORPUSCULAR HEMOGLOBIN 28.1 pg (28.0-32.0); MEAN PLATELET VOLUME 9.3 fl (7.4-10.4); RED BLOOD CELL COUNT 3.04 mill/uL (4.7-6.1); RED CELL DISTRIBUTION WIDTH 14.9 % (11.6-14.6)
[2022-04-14 07:15] LABS: PHOSPHORUS 4.1 mg/dL (2.5-4.9)
[2022-04-14 08:00] VITALS: BP 126/61
[2022-04-14] MEDS: CARVEDILOL 12.5MG TABLET PO SCH ×2 (09:05→20:42)
[2022-04-14] MEDS: GABAPENTIN 300MG CAPSULE PO SCH (09:05)
[2022-04-14] MEDS: AMLODIPINE 10MG TABLET PO SCH (09:05)
[2022-04-14] MEDS: INSULIN GLARGINE 100 UNITS/ML SUBCUT SCH ×2 (09:06→20:42)
[2022-04-14 11:50] LABS: PLATELET 106 x1000/uL (130-400)
[2022-04-14 12:00] VITALS: BP 127/60
[2022-04-14] MEDS: FUROSEMIDE 100MG/10ML VIAL IVP SCH ×2 (14:23→20:57)
[2022-04-14 16:00] VITALS: BP 129/63
[2022-04-14 20:00] VITALS: BP 102/48
[2022-04-14] MEDS ORDERED: VANCOMYCIN 1G PREMIX 200 ML IV SCH (21:00)
[2022-04-15] VITALS (19 sets, daily range): BP systolic 92–135; BP diastolic 40–78
[2022-04-15] MEDS: METHYLPREDNISOLONE SOD SUCC 125 MG/2 ML VIAL IV SCH ×5 (01:21→23:40)
[2022-04-15 01:25] LABS: BG BASE EXCESS -1.5 mmol/L (-2.0-2.0); BG CARBOXYHEMOGLOBIN 0.7 % (0.5-1.5); BG DEOXYHEMOGLOBIN 3.6 % (0.0-5.0); BG FRACTION INSPIRED OXYGEN 100; BG HCO3 ACT 22.3 mmol/L (22.0-26.0); BG METHEMOGLOBIN 0.3 % (0.0-1.5); BG OXYGEN SATURATION 96.4 % (92.0-98.5); BG OXYHEMOGLOBIN 95.4 % (94.0-97.0); BG PH 7.447 (7.350-7.450); BG SAMPLE SITE RIGHT BRACHIAL; BG TOTAL HEMOGLOBIN 7.7 g/dL (12.0-18.0); BG TOTAL RESPIRATORY RATE 214 b/min; BG VENT MODE MASK - BIPAP
[2022-04-15] MEDS: IPRATROPIUM/ALBUTEROL 0.5-3(2.5)MG/3ML NEB HHN SCH ×4 (04:52→20:16)
[2022-04-15] MEDS: CEFEPIME 2,000 MG in DEXT 5% WATER 100 ML IV SCH (05:13)
[2022-04-15] MEDS: BLOOD SUGAR DIAGNOSTIC STRIP TEST SCH ×4 (07:59→20:39)
[2022-04-15] MEDS: INSULIN LISPRO 100 UNITS/ML SUBCUT SCH ×4 (08:00→20:39)
[2022-04-15] MEDS: AMLODIPINE 10MG TABLET PO SCH (08:17)
[2022-04-15] MEDS: FUROSEMIDE 100MG/10ML VIAL IVP SCH ×2 (08:18→20:38)
[2022-04-15] MEDS: GABAPENTIN 300MG CAPSULE PO SCH (08:18)
[2022-04-15 08:19] LABS: PHOSPHORUS 4.3 mg/dL (2.5-4.9)
[2022-04-15] MEDS: CARVEDILOL 12.5MG TABLET PO SCH (08:19)
[2022-04-15 09:47] LABS: HEMATOCRIT. 22.3 % (42.0-52.0); HEMOGLOBIN. 7.6 g/dL (14.0-18.0); MEAN CORPUSCULAR HEMOGLOBIN 30.1 pg (28.0-32.0); MEAN CORPUSCULAR VOLUME 87.6 fL (80.0-94.0); RED BLOOD CELL COUNT 2.54 mill/uL (4.7-6.1); RED CELL DISTRIBUTION WIDTH 15.1 % (11.6-14.6)
[2022-04-15 11:12] LABS: PLATELET ESTIMATE MARKEDLY DECREASED
[2022-04-15 11:14] LABS: MEAN PLATELET VOLUME 11.1 fl (7.4-10.4); PLATELET 8 x1000/uL (130-400)
[2022-04-15 12:47] LABS: INR 1.3; PARTIAL THROMBOPLASTIN TIME 40.1 sec (23.4-31.0); PROTHROMBIN TIME 13.9 sec (9.6-11.0)
[2022-04-15 13:05] LABS: BG BASE EXCESS -3.4 mmol/L (-2.0-2.0); BG CARBOXYHEMOGLOBIN 1.2 % (0.5-1.5); BG DEOXYHEMOGLOBIN 7.8 % (0.0-5.0); BG FRACTION INSPIRED OXYGEN 100; BG HCO3 ACT 20.8 mmol/L (22.0-26.0); BG METHEMOGLOBIN 0.2 % (0.0-1.5); BG OXYGEN SATURATION 92.1 % (92.0-98.5); BG OXYHEMOGLOBIN 90.8 % (94.0-97.0); BG PCO2 33.9 mmHg (35.0-45.0); BG PH 7.406 (7.350-7.450); BG PO2 62.2 mmHg (75.0-100.0); BG SAMPLE SITE RIGHT RADIAL; BG TOTAL RESPIRATORY RATE 23 b/min; BG VENT MODE MASK - BIPAP
[2022-04-15] MEDS ORDERED: LIDOCAINE HCL 1% 30ML VIAL (10MG/ML) ONE (13:15)
[2022-04-15 13:16] LABS: HEPATITIS B SURFACE ANTIGEN NEGATIVE
[2022-04-15] MEDS: TRAZODONE HCL 50MG TABLET PO PRN (20:38)
[2022-04-16] VITALS (47 sets, daily range): BP systolic 79–140; BP diastolic 39–81
[2022-04-16] MEDS: IPRATROPIUM/ALBUTEROL 0.5-3(2.5)MG/3ML NEB HHN SCH ×6 (00:48→23:51)
[2022-04-16] MEDS: CEFEPIME 1,000 MG in DEXTROSE 5% WATER 50 ML IV SCH (05:16)
[2022-04-16] MEDS: METHYLPREDNISOLONE SOD SUCC 125 MG/2 ML VIAL IV SCH ×4 (05:16→23:44)
[2022-04-16 06:58] LABS: HEMATOCRIT. 21.6 % (42.0-52.0); HEMOGLOBIN. 7.3 g/dL (14.0-18.0); MEAN CORPUSCULAR HEMOGLOBIN 29.1 pg (28.0-32.0); MEAN CORPUSCULAR VOLUME 86.5 fL (80.0-94.0); MEAN PLATELET VOLUME 10.8 fl (7.4-10.4); RED CELL DISTRIBUTION WIDTH 15.3 % (11.6-14.6)
[2022-04-16] MEDS: BLOOD SUGAR DIAGNOSTIC STRIP TEST SCH ×4 (07:30→21:30)
[2022-04-16 07:37] LABS: PHOSPHORUS 6.3 mg/dL (2.5-4.9)
[2022-04-16] MEDS: INSULIN LISPRO 100 UNITS/ML SUBCUT SCH ×4 (08:00→21:00)
[2022-04-16] MEDS: GABAPENTIN 300MG CAPSULE PO SCH (09:56)
[2022-04-16] MEDS: FUROSEMIDE 100MG/10ML VIAL IVP SCH ×2 (09:57→21:30)
[2022-04-16] MEDS ORDERED: MORPHINE SULFATE 4 MG/ML CPJ (NOT FOR IM USE) IV PRN (10:30)
[2022-04-16 12:00] LABS: BG CARBOXYHEMOGLOBIN 2.4 % (0.5-1.5); BG DEOXYHEMOGLOBIN 10.1 % (0.0-5.0); BG FRACTION INSPIRED OXYGEN 100; BG HCO3 ACT 20.7 mmol/L (22.0-26.0); BG METHEMOGLOBIN 0.3 % (0.0-1.5); BG OXYGEN SATURATION 89.6 % (92.0-98.5); BG OXYHEMOGLOBIN 87.2 % (94.0-97.0); BG PCO2 31.2 mmHg (35.0-45.0); BG PO2 56.1 mmHg (75.0-100.0); BG SAMPLE SITE RIGHT RADIAL; BG TOTAL HEMOGLOBIN 7.6 g/dL (12.0-18.0); BG TOTAL RESPIRATORY RATE 22 b/min; BG VENT MODE MASK - BIPAP
[2022-04-16 12:24] LABS: PLATELET ESTIMATE MARKEDLY DECREASED
[2022-04-16 12:25] LABS: PLATELET 9 x1000/uL (130-400)
[2022-04-16] MEDS ORDERED: NOREPINEPHRINE 8 MG in DEXT 5% WATER 242 ML IV PRN (14:00)
[2022-04-16 20:47] LABS: HEMATOCRIT 22.2 % (42.0-52.0); HEMOGLOBIN 7.3 g/dL (14.0-18.0)
[2022-04-16 20:57] LABS: INR 1.4; PROTHROMBIN TIME 14.4 sec (9.6-11.0)
[2022-04-17] VITALS (25 sets, daily range): BP systolic 76–131; BP diastolic 24–94
[2022-04-17] MEDS: IPRATROPIUM/ALBUTEROL 0.5-3(2.5)MG/3ML NEB HHN SCH ×2 (04:10→09:35)
[2022-04-17 06:32] LABS: BG BASE EXCESS -8.4 mmol/L (-2.0-2.0); BG CARBOXYHEMOGLOBIN 3.8 % (0.5-1.5); BG DEOXYHEMOGLOBIN 21.1 % (0.0-5.0); BG FRACTION INSPIRED OXYGEN 100; BG METHEMOGLOBIN 0.2 % (0.0-1.5); BG OXYHEMOGLOBIN 74.9 % (94.0-97.0); BG PCO2 34.4 mmHg (35.0-45.0); BG PH 7.313 (7.350-7.450); BG PO2 46.4 mmHg (75.0-100.0); BG TOTAL HEMOGLOBIN 8.4 g/dL (12.0-18.0); BG VENT MODE MASK - BIPAP
[2022-04-17 06:56] LABS: HEMATOCRIT. 22.3 % (42.0-52.0); HEMOGLOBIN. 7.1 g/dL (14.0-18.0); MEAN CORPUSCULAR VOLUME 90.5 fL (80.0-94.0); MEAN PLATELET VOLUME 10.7 fl (7.4-10.4); RED BLOOD CELL COUNT 2.46 mill/uL (4.7-6.1)
[2022-04-17] MEDS ORDERED: PROPOFOL 10MG/ML 100ML 100 ML IV PRN (07:00)
[2022-04-17] MEDS ORDERED: FENTANYL CITRATE/PF 2,500 MCG in SODIUM CHLORIDE 0.9% 200 ML IV PRN (07:00)
[2022-04-17] MEDS ORDERED: NOREPINEPHRINE 32 MG in DEXT 5% WATER 218 ML IV PRN (07:00)
[2022-04-17 07:08] LABS: CHLORIDE 103 mEq/L (98-107)
[2022-04-17] MEDS: METHYLPREDNISOLONE SOD SUCC 125 MG/2 ML VIAL IV SCH (07:15)
[2022-04-17 07:24] LABS: PLATELET 16 x1000/uL (130-400)
[2022-04-17] MEDS: BLOOD SUGAR DIAGNOSTIC STRIP TEST SCH (07:50)
[2022-04-17] MEDS ORDERED: LIDOCAINE HCL 1% 30ML VIAL (10MG/ML) ONE (07:53)
[2022-04-17] MEDS: CEFEPIME 1,000 MG in DEXTROSE 5% WATER 50 ML IV SCH (07:59)
[2022-04-17 09:01] LABS: PLATELET ESTIMATE MARKEDLY DECREASED
[2022-04-17 09:38] LABS: BG BASE EXCESS -15.7 mmol/L (-2.0-2.0); BG CARBOXYHEMOGLOBIN 4.2 % (0.5-1.5); BG DEOXYHEMOGLOBIN 29.3 % (0.0-5.0); BG FRACTION INSPIRED OXYGEN 100; BG HCO3 ACT 14.5 mmol/L (22.0-26.0); BG METHEMOGLOBIN 0.3 % (0.0-1.5); BG OXYGEN SATURATION 69.3 % (92.0-98.5); BG OXYHEMOGLOBIN 66.2 % (94.0-97.0); BG PCO2 59.1 mmHg (35.0-45.0); BG PH 7.008 (7.350-7.450); BG PO2 54.3 mmHg (75.0-100.0); BG SAMPLE SITE LEFT FEMORAL; BG TOTAL HEMOGLOBIN 7.5 g/dL (12.0-18.0); BG VENT MODE VENT - AC
[2022-04-17 10:23] LABS: INR 1.5; PROTHROMBIN TIME 15.7 sec (9.6-11.0)
[2022-04-17 12:51] LABS: BG BASE EXCESS -25.6 mmol/L (-2.0-2.0); BG CARBOXYHEMOGLOBIN 5.4 % (0.5-1.5); BG DEOXYHEMOGLOBIN 34.3 % (0.0-5.0); BG FRACTION INSPIRED OXYGEN 100; BG HCO3 ACT 8.6 mmol/L (22.0-26.0); BG METHEMOGLOBIN 0.1 % (0.0-1.5); BG OXYGEN SATURATION 63.7 % (92.0-98.5); BG OXYHEMOGLOBIN 60.2 % (94.0-97.0); BG PCO2 63.5 mmHg (35.0-45.0); BG PH 6.751 (7.350-7.450); BG PO2 57.1 mmHg (75.0-100.0); BG SAMPLE SITE RIGHT FEMORAL; BG TOTAL HEMOGLOBIN 8.6 g/dL (12.0-18.0); BG VENT MODE VENT - AC
[2022-04-17] MEDS ORDERED: VANCOMYCIN 500MG PREMIX 100 ML IV SCH (14:00)
== END 2022-04-17 16:34 | DRG 720 ==
LOC: ER 01:33 → 7EST 04:13 → EDBEDREQ 04:37 → EDBEDREQTM 04:37 → ER 22:42 → 5EST 04-14 23:21 → CVICU 04-16 13:29
PROVIDERS: ADMIT Internal Medicine; ATTEND Internal Medicine
PROC: 5A0935A Assistance with Respiratory Ventilation, Less than 24 Consecutive Hours, High Flow/Velocity Cannula (ICD-10-PCS; principal; 2022-04-11)
PROC: 5A0935A Assistance with Respiratory Ventilation, Less than 24 Consecutive Hours, High Flow/Velocity Cannula (ICD-10-PCS; 2022-04-11)
PROC: 5A0935A Assistance with Respiratory Ventilation, Less than 24 Consecutive Hours, High Flow/Velocity Cannula (ICD-10-PCS; 2022-04-12)
PROC: 5A0935A Assistance with Respiratory Ventilation, Less than 24 Consecutive Hours, High Flow/Velocity Cannula (ICD-10-PCS; 2022-04-12)
PROC: 5A0935A Assistance with Respiratory Ventilation, Less than 24 Consecutive Hours, High Flow/Velocity Cannula (ICD-10-PCS; 2022-04-12)
PROC: 5A0935A Assistance with Respiratory Ventilation, Less than 24 Consecutive Hours, High Flow/Velocity Cannula (ICD-10-PCS; 2022-04-12)
PROC: 5A0935A Assistance with Respiratory Ventilation, Less than 24 Consecutive Hours, High Flow/Velocity Cannula (ICD-10-PCS; 2022-04-12)
PROC: 5A0935A Assistance with Respiratory Ventilation, Less than 24 Consecutive Hours, High Flow/Velocity Cannula (ICD-10-PCS; 2022-04-12)
PROC: 5A09357 Assistance with Respiratory Ventilation, Less than 24 Consecutive Hours, Continuous Positive Airway Pressure (ICD-10-PCS; 2022-04-12)
PROC: 5A0935A Assistance with Respiratory Ventilation, Less than 24 Consecutive Hours, High Flow/Velocity Cannula (ICD-10-PCS; 2022-04-13)
PROC: 5A0935A Assistance with Respiratory Ventilation, Less than 24 Consecutive Hours, High Flow/Velocity Cannula (ICD-10-PCS; 2022-04-13)
PROC: 5A0935A Assistance with Respiratory Ventilation, Less than 24 Consecutive Hours, High Flow/Velocity Cannula (ICD-10-PCS; 2022-04-13)
PROC: 5A0935A Assistance with Respiratory Ventilation, Less than 24 Consecutive Hours, High Flow/Velocity Cannula (ICD-10-PCS; 2022-04-13)
PROC: 5A0935A Assistance with Respiratory Ventilation, Less than 24 Consecutive Hours, High Flow/Velocity Cannula (ICD-10-PCS; 2022-04-13)
PROC: 5A0935A Assistance with Respiratory Ventilation, Less than 24 Consecutive Hours, High Flow/Velocity Cannula (ICD-10-PCS; 2022-04-13)
PROC: 5A0935A Assistance with Respiratory Ventilation, Less than 24 Consecutive Hours, High Flow/Velocity Cannula (ICD-10-PCS; 2022-04-14)
PROC: 5A0935A Assistance with Respiratory Ventilation, Less than 24 Consecutive Hours, High Flow/Velocity Cannula (ICD-10-PCS; 2022-04-14)
PROC: 5A0935A Assistance with Respiratory Ventilation, Less than 24 Consecutive Hours, High Flow/Velocity Cannula (ICD-10-PCS; 2022-04-14)
PROC: 5A0935A Assistance with Respiratory Ventilation, Less than 24 Consecutive Hours, High Flow/Velocity Cannula (ICD-10-PCS; 2022-04-14)
PROC: 5A0935A Assistance with Respiratory Ventilation, Less than 24 Consecutive Hours, High Flow/Velocity Cannula (ICD-10-PCS; 2022-04-14)
PROC: 5A0935A Assistance with Respiratory Ventilation, Less than 24 Consecutive Hours, High Flow/Velocity Cannula (ICD-10-PCS; 2022-04-14)
PROC: 5A09457 Assistance with Respiratory Ventilation, 24-96 Consecutive Hours, Continuous Positive Airway Pressure (ICD-10-PCS; 2022-04-15)
PROC: 02H633Z Insertion of Infusion Device into Right Atrium, Percutaneous Approach (ICD-10-PCS; 2022-04-15)
PROC: B548ZZA Ultrasonography of Superior Vena Cava, Guidance (ICD-10-PCS; 2022-04-15)
PROC: 30233R1 Transfusion of Nonautologous Platelets into Peripheral Vein, Percutaneous Approach (ICD-10-PCS; 2022-04-15)
PROC: 5A1D70Z Performance of Urinary Filtration, Intermittent, Less than 6 Hours Per Day (ICD-10-PCS; 2022-04-15)
PROC: 5A1D70Z Performance of Urinary Filtration, Intermittent, Less than 6 Hours Per Day (ICD-10-PCS; 2022-04-16)
PROC: 5A1935Z Respiratory Ventilation, Less than 24 Consecutive Hours (ICD-10-PCS; 2022-04-17)
PROC: 0BH17EZ Insertion of Endotracheal Airway into Trachea, Via Natural or Artificial Opening (ICD-10-PCS; 2022-04-17)
PROC: 02HV33Z Insertion of Infusion Device into Superior Vena Cava, Percutaneous Approach (ICD-10-PCS; 2022-04-17)
PROC: B548ZZA Ultrasonography of Superior Vena Cava, Guidance (ICD-10-PCS; 2022-04-17)
DX: A41.89 Other specified sepsis (principal); J80 Acute respiratory distress syndrome; I46.9 Cardiac arrest, cause unspecified; J12.82 Pneumonia due to coronavirus disease 2019; E43 Unspecified severe protein-calorie malnutrition; D61.818 Other pancytopenia; U07.1 COVID-19; E87.20 Acidosis, unspecified; N17.9 Acute kidney failure, unspecified; I50.9 Heart failure, unspecified; I13.0 Hypertensive heart and chronic kidney disease with heart failure and stage 1 through stage 4 chronic kidney disease, or unspecified chronic kidney disease; E11.22 Type 2 diabetes mellitus with diabetic chronic kidney disease; E87.1 Hypo-osmolality and hyponatremia; N18.9 Chronic kidney disease, unspecified; E87.5 Hyperkalemia; E78.5 Hyperlipidemia, unspecified; Z83.3 Family history of diabetes mellitus; Z82.49 Family history of ischemic heart disease and other diseases of the circulatory system; R74.01 Elevation of levels of liver transaminase levels; D63.1 Anemia in chronic kidney disease; E88.09 Other disorders of plasma-protein metabolism, not elsewhere classified; L03.114 Cellulitis of left upper limb; Z79.84 Long term (current) use of oral hypoglycemic drugs; S62.611A Displaced fracture of proximal phalanx of left index finger, initial encounter for closed fracture; S62.601A Fracture of unspecified phalanx of left index finger, initial encounter for closed fracture; X58.XXXA Exposure to other specified factors, initial encounter; Y93.89 Activity, other specified; Y92.89 Other specified places as the place of occurrence of the external cause; Y99.8 Other external cause status
CPT/HCPCS: 31500; 36415; 36556; 36573; 36600; 71045; 71250; 73120; 76770; 76937; 78580; 80048; 80053; 80202; 80305; 80320; 81003; 82140; 82270; 82375; 82550; 82805; 82962; 83036; 83605; 83735; 83880; 84100; 84145; 84484; 85014; 85018; 85025; 85049; 85379; 85384; 86705; 86709; 86803; 86850; 86900; 86945; 87070; 87077; 87186; 87340; 87426; 87804; 90935; 93005; 93306; 93970; 94640; 94660; 99291; C1725; C1752; C9803; J0610; J0692; J0696; J0885; J1100; J1815; J1940; J2270; J2405; J2704; J2930; J3370; J3490; J7060; P9034; A4315; G0480; P9036